=== PATIENT | female | born 1990 | race Hispanic/Latino ===

== ENCOUNTER 2020-03-06 13:07 | Emergency (ER) | payer SELFPAY ==
[~2020-03-06] VITALS: Ht 162.6 cm; Wt 88.0 kg
[2020-03-06 14:22] LABS: HEMATOCRIT 39.8 % (37.0-47.0); HEMOGLOBIN 13.4 g/dl (12.0-16.0); IMMATURE GRANULOCYTES 0.3 % (0.0-5.0); MEAN CELL VOLUME 91.1 fL CALC (80.0-100.0); MEAN CORPUSCULAR HGB 30.7 pG CALC (26.0-32.0); MEAN CORPUSCULAR HGB CONC 33.7 g/dL CAL (32.0-36.0); NEUT# 4.84 thou/uL (2.00-7.15); RED BLOOD COUNT 4.37 mill/uL (4.20-5.60); RED CELL DISTRI WIDTH 12.3 % (11.5-15.5)
[2020-03-06 14:41] LABS: ALBUMIN 4.3 g/dL (3.2-5.0); ALKALINE PHOSPHATASE 79 u/l (38-126); ANION GAP 13 (6-22 (CALC)); BILIRUBIN, TOTAL 0.4 mg/dL (0.0-1.4); BUN 8 mg/dL (7-17); BUN/CREATININE RATIO 11 (12-20 (CALC)); CARBON DIOXIDE 21 mmol/l (22-30); CHLORIDE 106 mmol/l (95-108); CREATININE 0.7 mg/dL (0.5-1.0); GFR > 60 ML/MIN (>=60 (CALC)); GFR FOR AFR.AMER. > 60 ML/MIN (>=60 (CALC)); POTASSIUM 4.5 mmol/l (3.5-5.1); SGOT/AST 21 u/l (14-36); SODIUM 136 mmol/l (137-146); TOTAL PROTEIN 7.4 g/dL (6.3-8.2)
[2020-03-06] MEDS ORDERED: ZOFRAN4 MG/TAB PO (15:30)
[2020-03-06] MEDS ORDERED: ULTRAM50 MG PO (15:30)
[2020-03-06] MEDS ORDERED: AMOX/K CLAV875 M1 PO (15:30)
[2020-03-06 15:37] VITALS: BP 113/53
== END 2020-03-06 15:43 | disposition home or self-care (01) | DRG 103 ==
LOC: ED 13:07
DX: G43.909 Migraine, unspecified, not intractable, without status migrainosus (principal); H60.91 Unspecified otitis externa, right ear; H66.91 Otitis media, unspecified, right ear